=== PATIENT | female | born 2000 | race Caucasian/White ===

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

== ENCOUNTER 2021-01-10 08:46 | Emergency (ER) | payer OTHER ==
[~2021-01-10] VITALS: Ht 154.9 cm; Wt 96.0 kg
[2021-01-10] MEDS ORDERED: SERT50TA29 (08:55)
[2021-01-10 10:10] LABS: BASO % 0.5 % (0.0-1.0); EOS # 0.4 10^3/uL (0.0-0.5); EOS % 4.6 % (0.0-3.0); HEMATOCRIT 40.8 % (36.0-47.0); HEMOGLOBIN 13.5 g/dl (12.0-15.5); LYMPH # 2.7 10^3/uL (1.5-5.0); LYMPH % 34.8 % (24.0-44.0); MEAN CORPUSCULAR HEMOGLOBIN 29.7 pg (27.0-33.0); MEAN CORPUSCULAR HGB CONC 33.1 g/dl (32.0-36.5); MEAN CORPUSCULAR VOLUME 89.7 fl (80.0-96.0); MONO # 0.9 10^3/uL (0.0-0.8); MONO % 11.3 % (2.0-8.0); NEUTROPHILS # 3.8 10^3/uL (1.5-8.5); NEUTROPHILS % 48.2 % (36.0-66.0); PLATELET COUNT, AUTOMATED 321 10^3/uL (150-450); RED BLOOD COUNT 4.55 10^6/uL (4.00-5.40); WHITE BLOOD COUNT 7.9 10^3/uL (4.0-10.0)
[2021-01-10 10:52] LABS: ALBUMIN 3.7 GM/DL (3.2-5.2); ALT/SGPT 25 U/L (12-78); BILIRUBIN,DIRECT < 0.1 MG/DL (0.0-0.2); BILIRUBIN,TOTAL 0.4 MG/DL (0.2-1.0); HCG, SERUM QUANTITATIVE < 1.0 MIU/ML; TOTAL PROTEIN 6.8 GM/DL (6.4-8.2)
--- NOTE | 2021-01-10 11:38 | REP ---
INDICATION: lower abd pain. COMPARISON: None. TECHNIQUE: Supine abdomen two views FINDINGS: The bowel gas pattern is normal. There are no calcifications. The skeletal structures and soft tissues otherwise are unremarkable. IMPRESSION: Negative supine abdomen. <Electronically signed by Rafiq Zamora > 01/10/21 [id number]
--- NOTE | 2021-01-10 12:15 | REP ---
INDICATION: lower abd pain. COMPARISON: None. TECHNIQUE: Transabdominal scanning is performed. FINDINGS: Uterine dimensions are normal at 8.4 x 2.6 x 3.9 cm. Endometrial echo is 0.6 cm thick and centrally placed. No free fluid is seen in the cul-de-sac. Visualized bladder duong are smooth. No focal uterine mass lesion is seen. The right ovary has dimensions of 5.8 x 3.7 x 3.8 cm. There is a 2.6 x 1.6 x 1.9 cm right ovarian cyst which appears anechoic. The left ovary dimensions are normal as well at 4.1 x 2.1 x 3.2 cm. Doppler flow is confirmed to be present to both ovaries. IMPRESSION: 2.6 cm follicle cyst right ovary. Unremarkable pelvic sonography.. <Electronically signed by Bayron Araiza > 01/10/21 [id number]
[2021-01-10] MEDS ORDERED: IBUP-1022 PO (12:30)
[2021-01-10 12:34] VITALS: BP 136/73
== END 2021-01-10 12:44 | disposition home or self-care (01) ==
LOC: M ED 08:46
DX: N83.01 Follicular cyst of right ovary (principal); F32.9 Major depressive disorder, single episode, unspecified; R51.9 Headache, unspecified; I10 Essential (primary) hypertension; Z79.899 Other long term (current) drug therapy; Z88.0 Allergy status to penicillin; Z88.2 Allergy status to sulfonamides; J30.1 Allergic rhinitis due to pollen

== ENCOUNTER → 2021-02-25 | Outpatient (REF) | payer OTHER ==
[~2021-02-25] MED LIST changes: +IBUP-1022 PO; +SERT50TA29
[2021-02-25 12:29] LABS: AMORPHOUS SEDIMENT MODERATE (NEGATIVE); APPEARANCE, URINE TURBID (CLEAR); BACTERIA, URINE AUTO NEGATIVE (NEGATIVE); BILIRUBIN, URINE AUTO NEGATIVE (NEGATIVE); BLOOD, URINE BLOOD NEGATIVE (NEGATIVE); COLOR, URINE YELLOW (YELLOW); GLUCOSE, URINE (UA) AUTO NEGATIVE (NEGATIVE); KETONE, URINE AUTO NEGATIVE (NEGATIVE); LEUKOCYTE ESTERASE, URINE AUTO NEGATIVE (NEGATIVE); MUCUS, URINE SMALL (NEGATIVE); NITRITE, URINE AUTO NEGATIVE (NEGATIVE); PROTEIN, URINE AUTO 1+ mg/dL (NEGATIVE); RBC, URINE AUTO 0 /HPF (0-3); SPECIFIC GRAVITY URINE AUTO 1.026 (1.002-1.035); SQUAMOUS EPITHELIAL CELL UR AU 16 /HPF (0-6); UROBILINOGEN, URINE AUTO 0.2 mg/dL (0.0-2.0); WBC, URINE AUTO 0 /HPF (0-3)
[2021-02-25 12:32] LABS: BASO # 0.1 10^3/uL (0.0-0.2); BASO % 0.6 % (0.0-1.0); EOS # 0.3 10^3/uL (0.0-0.5); HEMATOCRIT 41.7 % (36.0-47.0); HEMOGLOBIN 13.5 g/dl (12.0-15.5); LYMPH # 2.9 10^3/uL (1.5-5.0); LYMPH % 34.8 % (24.0-44.0); MEAN CORPUSCULAR HEMOGLOBIN 29.4 pg (27.0-33.0); MEAN CORPUSCULAR HGB CONC 32.4 g/dl (32.0-36.5); MEAN CORPUSCULAR VOLUME 90.8 fl (80.0-96.0); MONO # 0.9 10^3/uL (0.0-0.8); MONO % 11.4 % (2.0-8.0); NEUTROPHILS % 48.7 % (36.0-66.0); PLATELET COUNT, AUTOMATED 380 10^3/uL (150-450); RED BLOOD COUNT 4.59 10^6/uL (4.00-5.40); WHITE BLOOD COUNT 8.3 10^3/uL (4.0-10.0)
[2021-02-25 12:46] LABS: HEMOGLOBIN A1c 4.9 %
[2021-02-25 13:11] LABS: ALBUMIN 3.8 GM/DL (3.2-5.2); ALT/SGPT 19 U/L (12-78); BILIRUBIN,TOTAL 0.5 MG/DL (0.2-1.0); BLOOD UREA NITROGEN 11 MG/DL (7-18); CALCIUM LEVEL 9.5 MG/DL (8.5-10.1); CARBON DIOXIDE LEVEL 26 MEQ/L (21-32); CHLORIDE LEVEL 103 MEQ/L (98-107); CHOLESTEROL LEVEL 191 MG/DL (<200); CHOLESTEROL RISK RATIO 4.897 (<5); CREATININE FOR GFR 0.59 MG/DL (0.55-1.30); FERRITIN 52 NG/ML (8-252); FOLATE 11.9 NG/ML; FREE T4 0.87 NG/DL (0.78-1.33); GLUCOSE, FASTING 78 MG/DL (70-100); HDL CHOLESTEROL 39 MG/DL (>40); IRON (FE) 65 UG/DL (50-170); LDL CHOLESTEROL 126 MG/DL (<100); NON-HDL-C 152 MG/DL; PERCENT SATURATION 22.2 % (13.2-45.0); POTASSIUM SERUM 3.8 MEQ/L (3.5-5.1); SODIUM LEVEL 139 MEQ/L (136-145); TOTAL 25(OH) VITAMIN D 10.7 NG/ML (30.0-100.0); TOTAL IRON BINDING CAPACITY 293 UG/DL (250-450); TRIGLYCERIDES LEVEL 131 MG/DL (<150); VITAMIN B12 LEVEL 331 PG/ML
[2021-02-25 13:43] LABS: HEPATITIS C VIRUS ABY INDEX < 0.0 INDEX (<0.8)
[2021-02-25 13:44] LABS: HIV 1&2 SCREEN CENTAUR NEGATIVE (NEGATIVE)
== END ==
LOC: M LAB REF 11:28
PROVIDERS: ATTEND Nurse Practitioner Family
DX: Z00.00 Encounter for general adult medical examination without abnormal findings (principal); E66.9 Obesity, unspecified; M62.81 Muscle weakness (generalized)

== ENCOUNTER → 2021-04-08 | Outpatient (REF) | payer OTHER | LOC: M LAB REF 16:11 | PROVIDERS: ATTEND Advanced Practice Midwife | DX: Z34.01 Encounter for supervision of normal first pregnancy, first trimester (principal) ==

== ENCOUNTER 2021-05-23 07:45 | Emergency (ER) | payer OTHER ==
[~2021-05-23] VITALS: Ht 154.9 cm; Wt 95.8 kg
[2021-05-23 07:46] VITALS: BP 144/78
[2021-05-23] MEDS ORDERED: NEOM1SUS13 (07:59)
== END 2021-05-23 09:34 | disposition home or self-care (01) ==
LOC: M ED 07:45
DX: H60.93 Unspecified otitis externa, bilateral (principal); Z88.0 Allergy status to penicillin; Z91.048 Other nonmedicinal substance allergy status; Z88.1 Allergy status to other antibiotic agents; Z88.2 Allergy status to sulfonamides

== ENCOUNTER → 2021-08-08 | Outpatient (CLI) | payer OTHER ==
[~2021-08-08] MED LIST changes: +NEOM1SUS13
[2021-08-08 15:58] LABS: HEMATOCRIT 37.7 % (36.0-47.0); HEMOGLOBIN 12.2 g/dl (12.0-15.5); MEAN CORPUSCULAR HEMOGLOBIN 28.9 pg (27.0-33.0); MEAN CORPUSCULAR HGB CONC 32.4 g/dl (32.0-36.5); MEAN CORPUSCULAR VOLUME 89.3 fl (80.0-96.0); PLATELET COUNT, AUTOMATED 352 10^3/uL (150-450); RED BLOOD COUNT 4.22 10^6/uL (4.00-5.40); WHITE BLOOD COUNT 10.9 10^3/uL (4.0-10.0)
== END ==
LOC: M LAB 12:28
PROVIDERS: ATTEND Obstetrics & Gynecology
DX: Z34.02 Encounter for supervision of normal first pregnancy, second trimester (principal); Z3A.00 Weeks of gestation of pregnancy not specified

== ENCOUNTER → 2021-09-23 | Outpatient (REF) | payer OTHER ==
[~2021-09-23] MED LIST changes: +IRON1TAB2 PO; +IRON240T PO; +PRENTAB53 PO
== END ==
LOC: M LAB REF 16:49
PROVIDERS: ATTEND Advanced Practice Midwife
DX: Z34.03 Encounter for supervision of normal first pregnancy, third trimester (principal)

== ENCOUNTER → 2021-10-16 | Outpatient (REF) | payer OTHER ==
[~2021-10-16] MED LIST changes: -IRON1TAB2 PO; -IRON240T PO; -PRENTAB53 PO
[2021-10-16 12:15] LABS: CREATININE,RANDOM URINE 98.2 MG/DL; TOTAL PROTEIN,RANDOM URINE 48.2 MG/DL (0.0-12.0)
== END ==
LOC: M LAB REF 11:21
PROVIDERS: ATTEND Advanced Practice Midwife
DX: O12.13 Gestational proteinuria, third trimester (principal)

== ENCOUNTER 2021-11-05 14:18 | Emergency (ER) | payer OTHER ==
[~2021-11-05] VITALS: Ht 154.9 cm; Wt 114.5 kg
[2021-11-05] MEDS ORDERED: PRENTAB53 PO (14:29)
[2021-11-05] MEDS ORDERED: IRON1TAB2 PO (14:29)
[2021-11-05] MEDS ORDERED: IRON240T PO (14:29)
[2021-11-05] MEDS ORDERED: NS 1,000 ML IV ONE (17:35)
[2021-11-05] MEDS ORDERED: ONDANSETRON 4MG/2ML VIAL IV ONE (17:35)
[2021-11-05 18:29] LABS: BASO # 0.1 10^3/uL (0.0-0.2); BASO % 0.9 % (0.0-1.0); EOS # 0.4 10^3/uL (0.0-0.5); EOS % 4.9 % (0.0-3.0); HEMOGLOBIN 12.5 g/dl (12.0-15.5); LYMPH # 2.5 10^3/uL (1.5-5.0); LYMPH % 32.6 % (24.0-44.0); MEAN CORPUSCULAR HEMOGLOBIN 28.7 pg (27.0-33.0); MEAN CORPUSCULAR HGB CONC 32.1 g/dl (32.0-36.5); MEAN CORPUSCULAR VOLUME 89.4 fl (80.0-96.0); MONO # 0.6 10^3/uL (0.0-0.8); MONO % 8.4 % (2.0-8.0); NEUTROPHILS % 52.4 % (36.0-66.0); PLATELET COUNT, AUTOMATED 420 10^3/uL (150-450); RED BLOOD COUNT 4.36 10^6/uL (4.00-5.40); WHITE BLOOD COUNT 7.6 10^3/uL (4.0-10.0)
[2021-11-05 18:47] LABS: INR 0.96; PROTHROMBIN TIME 13.2 SECONDS (12.7-14.5)
[2021-11-05 18:48] LABS: PARTIAL THROMBOPLASTIN TIME 31.1 SECONDS (25.9-37.0)
[2021-11-05 19:24] LABS: ALBUMIN 3.5 GM/DL (3.2-5.2); ALT/SGPT 32 U/L (12-78); BILIRUBIN,DIRECT < 0.1 MG/DL (0.0-0.2); BILIRUBIN,TOTAL 0.3 MG/DL (0.2-1.0); BLOOD UREA NITROGEN 14 MG/DL (7-18); CALCIUM LEVEL 9.6 MG/DL (8.5-10.1); CARBON DIOXIDE LEVEL 29 MEQ/L (21-32); CHLORIDE LEVEL 106 MEQ/L (98-107); CREATININE FOR GFR 0.73 MG/DL (0.55-1.30); GLUCOSE, FASTING 87 MG/DL (70-100); MAGNESIUM LEVEL 2.3 MG/DL (1.8-2.4); POTASSIUM SERUM 4.7 MEQ/L (3.5-5.1); SODIUM LEVEL 139 MEQ/L (136-145); TOTAL PROTEIN 7.2 GM/DL (6.4-8.2)
[2021-11-05 20:36] VITALS: BP 125/78
== END 2021-11-05 20:45 | disposition home or self-care (01) ==
LOC: M ED 14:18
DX: O16.5 Unspecified maternal hypertension, complicating the puerperium (principal); O99.43 Diseases of the circulatory system complicating the puerperium; R07.89 Other chest pain; O99.893 Other specified diseases and conditions complicating puerperium; R10.9 Unspecified abdominal pain; H53.8 Other visual disturbances; O99.345 Other mental disorders complicating the puerperium; F32.9 Major depressive disorder, single episode, unspecified; Z88.0 Allergy status to penicillin; Z88.2 Allergy status to sulfonamides; Z79.899 Other long term (current) drug therapy
CPT/HCPCS: 70450; 71046; 76856; 80048; 80076; 83735; 85025; 85610; 85730; 93005; 96361; 96374; 99284; J2405

== ENCOUNTER → 2021-12-11 | Outpatient (REF) ==
[~2021-12-11] MED LIST changes: +IRON1TAB2 PO; +IRON240T PO; +PRENTAB53 PO
== END ==
LOC: M LABSMTC 09:09
PROVIDERS: ATTEND Pediatrics
DX: Z11.52 Encounter for screening for COVID-19 (principal)

== ENCOUNTER 2022-06-08 15:03 | Emergency (ER) | payer OTHER ==
[~2022-06-08] VITALS: Ht 154.9 cm; Wt 100.0 kg
[~2022-06-08 15:03] MED LIST changes: +ETON68IM SC; -NEXP1IMP SC
[2022-06-08 15:58] LABS: HEMATOCRIT 40.5 % (36.0-47.0); HEMOGLOBIN 13.3 g/dl (12.0-15.5); MEAN CORPUSCULAR HEMOGLOBIN 28.3 pg (27.0-33.0); MEAN CORPUSCULAR HGB CONC 32.8 g/dl (32.0-36.5); MEAN CORPUSCULAR VOLUME 86.2 fl (80.0-96.0); PLATELET COUNT, AUTOMATED 298 10^3/uL (150-450); WHITE BLOOD COUNT 6.7 10^3/uL (4.0-10.0)
[2022-06-08 16:32] LABS: RSV AMPLIFICATION NEGATIVE (NEGATIVE)
[2022-06-08 16:42] LABS: ACETAMINOPHEN LEVEL < 2.0 UG/ML (10.0-30.0); ALBUMIN 3.8 GM/DL (3.2-5.2); ALT/SGPT 56 U/L (12-78); BILIRUBIN,DIRECT 0.1 MG/DL (0.0-0.2); BILIRUBIN,TOTAL 0.3 MG/DL (0.2-1.0); BLOOD UREA NITROGEN 11 MG/DL (7-18); CALCIUM LEVEL 8.6 MG/DL (8.5-10.1); CARBON DIOXIDE LEVEL 28 MEQ/L (21-32); CHLORIDE LEVEL 109 MEQ/L (98-107); CREATININE FOR GFR 0.73 MG/DL (0.55-1.30); ETHYL ALCOHOL (ETHANOL) < 0.003 % (0.000-0.010); GLUCOSE, FASTING 88 MG/DL (70-100); POTASSIUM SERUM 4.1 MEQ/L (3.5-5.1); SALICYLATE LEVEL < 1.7 MG/DL (5.0-30.0); SODIUM LEVEL 143 MEQ/L (136-145); TOTAL PROTEIN 7.3 GM/DL (6.4-8.2)
[2022-06-08 16:46] LABS: AMPHETAMINES LEVEL URINE NEGATIVE (NEGATIVE); BARBITURATES URINE NEGATIVE (NEGATIVE); BENZODIAZEPINES URINE NEGATIVE (NEGATIVE); CANNABINOIDS URINE POSITIVE (NEGATIVE); COCAINE METABOLITE URINE NEGATIVE (NEGATIVE); METHADONE URINE NEGATIVE (NEGATIVE); OPIATES URINE NEGATIVE (NEGATIVE); PHENCYCLIDINE URINE NEGATIVE (NEGATIVE)
[2022-06-08 16:51] LABS: HCG, SERUM QUALITATIVE NEGATIVE (NEGATIVE)
[2022-06-08] MEDS ORDERED: HOME MED LIST COMPLETE! XX SCH (23:35)
[2022-06-08] MEDS ORDERED: MULTTAB20 PO (23:35)
[2022-06-09 14:09] VITALS: BP 139/90
== END 2022-06-09 14:10 | disposition home or self-care (01) ==
LOC: M ED 15:03
DX: F53.0 Postpartum depression (principal); R45.851 Suicidal ideations; Z91.51 Personal history of suicidal behavior; Z88.0 Allergy status to penicillin; Z88.2 Allergy status to sulfonamides; Z79.899 Other long term (current) drug therapy

== ENCOUNTER 2022-09-04 09:06 | Emergency (ER) | payer MEDICAID, OTHER ==
[~2022-09-04] VITALS: Ht 154.9 cm; Wt 86.9 kg
[2022-09-04 09:06] VITALS: BP 145/89
[~2022-09-04 09:06] MED LIST changes: +MULTTAB20 PO
[2022-09-04 10:02] LABS: BASO % 0.3 % (0.0-1.0); EOS # 0.1 10^3/uL (0.0-0.5); EOS % 0.7 % (0.0-3.0); HEMATOCRIT 41.5 % (36.0-47.0); HEMOGLOBIN 13.7 g/dl (12.0-15.5); LYMPH # 1.8 10^3/uL (1.5-5.0); LYMPH % 19.9 % (24.0-44.0); MEAN CORPUSCULAR HEMOGLOBIN 29.1 pg (27.0-33.0); MEAN CORPUSCULAR VOLUME 88.1 fl (80.0-96.0); MONO # 0.9 10^3/uL (0.0-0.8); MONO % 9.5 % (2.0-8.0); NEUTROPHILS # 6.4 10^3/uL (1.5-8.5); NEUTROPHILS % 69.3 % (36.0-66.0); PLATELET COUNT, AUTOMATED 336 10^3/uL (150-450); RED BLOOD COUNT 4.71 10^6/uL (4.00-5.40); WHITE BLOOD COUNT 9.2 10^3/uL (4.0-10.0)
[2022-09-04 10:32] LABS: HCG, SERUM QUALITATIVE NEGATIVE (NEGATIVE)
[2022-09-04 10:41] LABS: ALBUMIN 3.7 GM/DL (3.2-5.2); ALT/SGPT 20 U/L (12-78); BILIRUBIN,DIRECT 0.1 MG/DL (0.0-0.2); BILIRUBIN,TOTAL 0.4 MG/DL (0.2-1.0); BLOOD UREA NITROGEN 12 MG/DL (7-18); CALCIUM LEVEL 8.9 MG/DL (8.5-10.1); CARBON DIOXIDE LEVEL 27 MEQ/L (21-32); CHLORIDE LEVEL 105 MEQ/L (98-107); GLOMERULAR FILTRATION RATE > 60.0 (>60); GLUCOSE, FASTING 128 MG/DL (70-100); LIPASE 83 U/L (73-393); POTASSIUM SERUM 4.3 MEQ/L (3.5-5.1); SODIUM LEVEL 139 MEQ/L (136-145); TOTAL PROTEIN 7.2 GM/DL (6.4-8.2)
== END 2022-09-04 13:52 | disposition home or self-care (01) ==
LOC: M ED 09:06
DX: R10.2 Pelvic and perineal pain (principal); R11.10 Vomiting, unspecified; Z87.42 Personal history of other diseases of the female genital tract; J30.1 Allergic rhinitis due to pollen; Z88.0 Allergy status to penicillin; Z88.2 Allergy status to sulfonamides

== ENCOUNTER 2022-09-06 18:30 | Emergency (ER) | payer OTHER ==
[~2022-09-06] VITALS: Ht 154.9 cm; Wt 88.7 kg
[2022-09-06 18:32] VITALS: BP 143/77
[2022-09-06] MEDS ORDERED: LIDOCAINE 2% MDV 20ML VIAL SC ONE (22:00)
== END 2022-09-06 22:30 | disposition home or self-care (01) ==
LOC: M ED 18:30
DX: S90.852A Superficial foreign body, left foot, initial encounter (principal); W45.8XXA Other foreign body or object entering through skin, initial encounter; I10 Essential (primary) hypertension; J30.1 Allergic rhinitis due to pollen; Z88.0 Allergy status to penicillin; Z88.2 Allergy status to sulfonamides

== ENCOUNTER 2022-10-31 12:03 | Emergency (ER) | payer OTHER ==
[~2022-10-31] VITALS: Ht 154.9 cm; Wt 90.9 kg
[2022-10-31 12:22] VITALS: BP 140/95
[2022-10-31] MEDS ORDERED: FLUORESCEIN OPHTH 1MG STRIP XX ONE (12:35)
[2022-10-31] MEDS ORDERED: PROPARACAINE 0.5% OPHTH SOL 15ML XX ONE (12:35)
[2022-10-31] MEDS ORDERED: BACIOIN23 OD (12:47)
== END 2022-10-31 12:58 | disposition home or self-care (01) ==
LOC: EDBD 12:03 → M ED 12:03
DX: S05.01XA Injury of conjunctiva and corneal abrasion without foreign body, right eye, initial encounter (principal); W50.0XXA Accidental hit or strike by another person, initial encounter; Y92.098 Other place in other non-institutional residence as the place of occurrence of the external cause; I10 Essential (primary) hypertension; J30.1 Allergic rhinitis due to pollen; Z88.0 Allergy status to penicillin; Z88.2 Allergy status to sulfonamides

== ENCOUNTER 2023-01-28 20:36 | Emergency (ER) | payer OTHER ==
[~2023-01-28] VITALS: Ht 154.9 cm; Wt 97.5 kg
[~2023-01-28 20:36] MED LIST changes: +BACIOIN23 OD
[2023-01-28 21:26] VITALS: BP 121/80
[2023-01-28 22:26] LABS: BASO % 0.3 % (0.0-1.0); EOS # 0.4 10^3/uL (0.0-0.5); EOS % 3.5 % (0.0-3.0); HEMOGLOBIN 13.2 g/dl (12.0-15.5); LYMPH # 4.1 10^3/uL (1.5-5.0); LYMPH % 38.9 % (24.0-44.0); MEAN CORPUSCULAR VOLUME 87.9 fl (80.0-96.0); MONO # 0.8 10^3/uL (0.0-0.8); MONO % 7.8 % (2.0-8.0); NEUTROPHILS # 5.1 10^3/uL (1.5-8.5); NEUTROPHILS % 49.1 % (36.0-66.0); PLATELET COUNT, AUTOMATED 340 10^3/uL (150-450); RED BLOOD COUNT 4.55 10^6/uL (4.00-5.40); WHITE BLOOD COUNT 10.4 10^3/uL (4.0-10.0)
[2023-01-28 23:06] LABS: BLOOD UREA NITROGEN 10 MG/DL (9-23); CALCIUM LEVEL 8.7 MG/DL (8.5-10.1); CARBON DIOXIDE LEVEL 24 MMOL/L (20-31); CHLORIDE LEVEL 105 MMOL/L (98-107); CK-MB VALUE MASS < 1.0 NG/ML (<3.6); GLOMERULAR FILTRATION RATE > 60.0 (>60); GLUCOSE, FASTING 87 MG/DL (60-100); MAGNESIUM LEVEL 1.8 MG/DL (1.8-2.4); POTASSIUM SERUM 4.2 MMOL/L (3.5-5.1); SODIUM LEVEL 137 MMOL/L (136-145)
[2023-01-28 23:38] LABS: CPK CREATINE PHOSPHOKINASE 65 U/L (34-145); HCG, SERUM QUANTITATIVE 69374.3 MIU/ML (<4.2); MB/CK RELATIVE INDEX 1.53 (< OR =4)
[2023-01-29 00:25] LABS: CPK CREATINE PHOSPHOKINASE 55 U/L (34-145)
[2023-01-29 00:29] LABS: CK-MB VALUE MASS < 1.0 NG/ML (<3.6); MB/CK RELATIVE INDEX 1.81 (< OR =4)
== END 2023-01-29 01:20 | disposition home or self-care (01) ==
LOC: M ED 20:36
DX: O99.891 Other specified diseases and conditions complicating pregnancy (principal); R07.89 Other chest pain; Z3A.01 Less than 8 weeks gestation of pregnancy; Z88.0 Allergy status to penicillin; Z88.2 Allergy status to sulfonamides

== ENCOUNTER 2024-09-11 19:23 | Emergency (ER) | payer OTHER, SELFPAY ==
[~2024-09-11] VITALS: Ht 152.4 cm; Wt 100.0 kg
[2024-09-11 19:54] LABS: BASO % 0.3 % (0.0-1.0); EOS # 0.1 10^3/uL (0.0-0.5); EOS % 0.6 % (0.0-3.0); HEMATOCRIT 44.4 % (36.0-47.0); HEMOGLOBIN 15.3 g/dl (12.0-15.5); LYMPH % 43.9 % (24.0-44.0); MEAN CORPUSCULAR HEMOGLOBIN 30.4 pg (27.0-33.0); MEAN CORPUSCULAR HGB CONC 34.5 g/dl (32.0-36.5); MEAN CORPUSCULAR VOLUME 88.1 fl (80.0-96.0); MONO # 0.8 10^3/uL (0.0-0.8); MONO % 6.8 % (2.0-8.0); NEUTROPHILS # 5.4 10^3/uL (1.5-8.5); NEUTROPHILS % 47.8 % (36.0-66.0); PLATELET COUNT, AUTOMATED 429 10^3/uL (150-450); RED BLOOD COUNT 5.04 10^6/uL (4.00-5.40); WHITE BLOOD COUNT 11.4 10^3/uL (4.0-10.0)
[2024-09-11 20:11] LABS: ETHYL ALCOHOL (ETHANOL) 0.234 % (0.000-0.010)
[2024-09-11 20:13] LABS: ALBUMIN 4.2 G/DL (3.2-5.2); ALKALINE PHOSPHATASE 81 U/L (35-104); ALT/SGPT 19 U/L (7.0-40); AST/SGOT 18 U/L (<34); BILIRUBIN,DIRECT < 0.1 MG/DL (<0.4); BILIRUBIN,TOTAL 0.3 MG/DL (0.3-1.2); BLOOD UREA NITROGEN 15 MG/DL (9-23); CALCIUM LEVEL 9.4 MG/DL (8.5-10.1); CARBON DIOXIDE LEVEL 23 MMOL/L (20-31); CHLORIDE LEVEL 107 MMOL/L (98-107); CREATININE FOR GFR 0.69 MG/DL (0.55-1.30); GLOMERULAR FILTRATION RATE > 60.0 (>60); GLUCOSE, FASTING 106 MG/DL (60-100); POTASSIUM SERUM 4.2 MMOL/L (3.5-5.1); SALICYLATE LEVEL < 3.0 MG/DL (<30); SODIUM LEVEL 142 MMOL/L (136-145); TOTAL PROTEIN 7.8 G/DL (5.7-8.2)
[2024-09-11 20:14] LABS: THYROID STIMULATING HORMONE 1.198 uIU/ML (0.55-4.78)
[2024-09-11 20:17] LABS: CPK CREATINE PHOSPHOKINASE 105 U/L (34-145)
[2024-09-11 21:12] LABS: AMPHETAMINES LEVEL URINE NEGATIVE (NEGATIVE); BARBITURATES URINE NEGATIVE (NEGATIVE); BENZODIAZEPINES URINE NEGATIVE (NEGATIVE); COCAINE METABOLITE URINE NEGATIVE (NEGATIVE); METHADONE URINE NEGATIVE (NEGATIVE); OPIATES URINE NEGATIVE (NEGATIVE); PHENCYCLIDINE URINE NEGATIVE (NEGATIVE)
[2024-09-11 21:13] LABS: CANNABINOIDS URINE POSITIVE (NEGATIVE)
[2024-09-11] MEDS ORDERED: HOME MED LIST COMPLETE! XX SCH (23:20)
[2024-09-12 03:38] VITALS: BP 138/87; TEMP 98.1; O2SAT 95
== END 2024-09-12 03:39 | disposition home or self-care (01) ==
LOC: M ED 19:23
DX: F10.120 Alcohol abuse with intoxication, uncomplicated (principal); F17.210 Nicotine dependence, cigarettes, uncomplicated; F12.10 Cannabis abuse, uncomplicated; R94.31 Abnormal electrocardiogram [ECG] [EKG]; Z88.0 Allergy status to penicillin; Z88.2 Allergy status to sulfonamides; Z91.09 Other allergy status, other than to drugs and biological substances

== ENCOUNTER 2025-03-21 14:29 | Emergency (ER) | payer MEDICAID, OTHER, SELFPAY ==
[~2025-03-21] VITALS: Ht 152.4 cm; Wt 110.0 kg
[~2025-03-21 14:29] MED LIST changes: +VANC125C13 PO; -VANC125C3 PO
[2025-03-21] MEDS ORDERED: CIPR7.5D2 OTIC (17:45)
[2025-03-21] MEDS ORDERED: DOXY-441 PO (17:45)
[2025-03-21 17:52] VITALS: BP 141/84; TEMP 99.4; O2SAT 98
== END 2025-03-21 18:01 | disposition home or self-care (01) ==
LOC: M ED 14:29
DX: S62.522A Displaced fracture of distal phalanx of left thumb, initial encounter for closed fracture (principal); Y92.9 Unspecified place or not applicable; Y93.9 Activity, unspecified; Y99.9 Unspecified external cause status; Z88.0 Allergy status to penicillin; Z88.2 Allergy status to sulfonamides; Z91.09 Other allergy status, other than to drugs and biological substances; Z79.2 Long term (current) use of antibiotics

== ENCOUNTER 2025-08-04 10:10 | Emergency (ER) | payer MEDICAID, OTHER ==
[~2025-08-04] VITALS: Ht 154.9 cm; Wt 109.1 kg
[~2025-08-04 10:10] MED LIST changes: +CIPR7.5D2 OTIC; +DOXY-441 PO; -IBUP-1022 PO; +IBUP600T42 PO
[2025-08-04] MEDS: KETOROLAC 30 MG/ML 1 ML VIAL IM ONE (13:21)
[2025-08-04] MEDS ORDERED: CEPH500C PO (14:01)
[2025-08-04] MEDS ORDERED: KETO-204 PO (14:01)
[2025-08-04 14:19] VITALS: BP 135/89; TEMP 97.3; O2SAT 96
== END 2025-08-04 14:21 | disposition home or self-care (01) ==
LOC: M ED 10:10
DX: K08.89 Other specified disorders of teeth and supporting structures (principal); Z88.0 Allergy status to penicillin; Z88.2 Allergy status to sulfonamides; Z91.09 Other allergy status, other than to drugs and biological substances; Z79.2 Long term (current) use of antibiotics
CPT/HCPCS: 96372; 99283; J1885